=== PATIENT | male | born 1980 | race Caucasian/White ===

== ENCOUNTER 2021-10-01 14:27 | Emergency (ER) | payer BC ==
[~2021-10-01] VITALS: Ht 185.4 cm; Wt 102.3 kg
[~2021-10-01 14:27] MED LIST: BACTRIM DS 8001 TAB PO; CIPRO 500MG TA500 MG PO; LORTAB 5/500 501 TAB PO; NO HOME MEDICATIONS
[2021-10-01 14:58] VITALS: BP 130/68; TEMP 98
[2021-10-01] MEDS ORDERED: VALIUM 5MG T5 MG/TAB PO (17:39)
[2021-10-01] MEDS ORDERED: NORCO 325 MG-51 TAB PO (17:39)
[2021-10-01 17:47] VITALS: PULSE 88
== END 2021-10-01 17:47 | disposition home or self-care (01) ==
LOC: COL.ER 14:27
DX: G57.92 Unspecified mononeuropathy of left lower limb (principal); M25.552 Pain in left hip
CPT/HCPCS: J2930; J3010; J3360